=== PATIENT | male | born 1935 | race Caucasian/White ===

== ENCOUNTER 2017-09-24 14:04 | Emergency (ER) | payer OTHER ==
[2017-09-24 14:30] LABS: BASO % 0.3 % (0.0-1.0); EOS # 0.2 10*3/uL (0.0-0.4); EOS % 1.7 % (1.0-4.0); HEMATOCRIT 30.5 % (42.0-52.0); HEMOGLOBIN 9.3 g/dl (14.0-18.0); LYMPH # 1.2 10*3/uL (1.3-4.4); LYMPH % 14.3 % (27.0-41.0); MEAN CORPUSCULAR HGB CONC 30.5 g/dl (33.0-37.0); MEAN PLATELET VOLUME 9.9 fl (9.6-12.3); MONO # 0.6 10*3/uL (0.1-1.0); MONO % 7.3 % (3.0-9.0); NEUT # 6.6 10*3/uL (2.3-7.9); NEUT % 76.2 % (47.0-73.0); PLATELET COUNT AUTOMATED 308 10*3/uL (130-400); RED BLOOD COUNT 3.72 10*6/uL (4.50-5.90); RED CELL DISTRI WIDTH 16.3 % (0-14.5); WHITE BLOOD COUNT 8.6 10*3/uL (4.8-10.8)
[2017-09-24 14:45] LABS: ALBUMIN 3.9 gm/dl (3.1-4.5); ALKALINE PHOSPHATASE 48 U/L (45-117); BUN 28 mg/dl (7-24); CHLORIDE 103 mmol/L (98-107); CREATININE 1.58 mg/dL (0.70-1.30); LIPASE 111 U/L (73-393); POTASSIUM 4.5 mmol/L (3.5-5.1); SGOT/AST 15 IU/L (3-35); SGPT/ALT 20 U/L (12-78); SODIUM 137 mmol/L (136-145); TOTAL PROTEIN 7.2 gm/dL (6.4-8.2)
[2017-09-24 14:47] LABS: TROPONIN I < 0.015 ng/ml (<0.045)
== END 2017-09-24 16:41 | disposition left against medical advice (07) ==
LOC: ED 14:04
PROVIDERS: Physician Assistant
DX: R55 Syncope and collapse (principal); R42 Dizziness and giddiness; I10 Essential (primary) hypertension; E11.9 Type 2 diabetes mellitus without complications; I25.2 Old myocardial infarction; Z95.5 Presence of coronary angioplasty implant and graft

== ENCOUNTER 2020-10-24 00:22 | Inpatient (IN) | payer OTHER ==
[~2020-10-24] VITALS: Ht 177.8 cm; Wt 86.2 kg
[2020-10-24] VITALS (9 sets, daily range): BP systolic 110–150; BP diastolic 48–87
[2020-10-24 00:47] LABS: HEMATOCRIT 41.3 % (42.0-52.0); MEAN CELL VOLUME 93.9 fl (80.0-94.0); MEAN CORPUSCULAR HGB 30.5 pg (27.0-31.0); MEAN CORPUSCULAR HGB CONC 32.4 g/dl (33.0-37.0); MEAN PLATELET VOLUME 9.9 fl (9.6-12.3); PLATELET COUNT AUTOMATED 218 10*3/uL (130-400); RED CELL DISTRI WIDTH 13.1 % (0-14.5); WHITE BLOOD COUNT 5.8 10*3/uL (4.8-10.8)
--- NOTE | 2020-10-24 01:01 | NUR ---
PT DAUGHTER UPDATED ON CURRENT PLAN OF CARE.DAUGHTER REPORTS PT WAS AROUND HIS GRANDDAUGHTER AT [place] WHO HAD COVID.
[2020-10-24 01:04] LABS: ALBUMIN 3.6 gm/dl (3.1-4.5); CREATININE 1.42 mg/dL (0.70-1.30); POTASSIUM 3.9 mmol/L (3.5-5.1); TOTAL PROTEIN 6.6 gm/dL (6.4-8.2)
[2020-10-24 01:08] LABS: PLATELET SUFFICIENCY NORMAL (NORMAL); TOTAL CELLS COUNTED 100 #CELLS
--- NOTE | 2020-10-24 01:31 | NUR ---
PT BECAME DISORIENTED.PT STANDING AT THE END OF THE BED WITH IV STRETCHED ACROOS ROOM.PT IV BECAME DISLOGED.NEW IV ESTABLISHED IN LAC.IV FLUIDS CONTINUE TO INFUSE.SIDERAILS UP X2.CALL DENG IS WITHIN REACH.PT REORIENTED TO HIS SURROUNDINGS. MADE AWARE.PT TO BE MOVED CLOSER TO NURSE STATION WHEN BED AVAILABLE.UR[place] CATH PLACED FOR ATTEMPT TO OBTAIN URINE SPECIMEN.
--- NOTE | 2020-10-24 02:19 | NUR ---
PT DAUGHTER UPDATED ON CURRENT PLAN OF CARE.
--- NOTE | 2020-10-24 02:48 | NUR ---
SUJATHA CATHETER REMOVED.PT PROVIDED URINE SPECIMEN WITH USE OF BEDSIDE URINAL.SPECIMEN LABELED AND SENT TO LAB.INFUSION OF ANTIBIOTIC COMPLETED.NS CONTINUES TO INFUSE.
[2020-10-24 02:54] LABS: BILIRUBIN Negative (Negative); BLOOD Negative (Negative); CLARITY Clear (Clear); COLOR Yellow (Yellow); GLUCOSE Trace (Negative); KETONE Negative (Negative); LEUKO ESTERASE Negative (Negative); NITRITE Negative (Negative); PH 5.5 (4.5-8.0); SPECIFIC GRAVITY 1.015 (1.001-1.030)
[2020-10-24] MEDS ORDERED: AMLODIPINE BESYL5 MG PO (03:11)
[2020-10-24] MEDS ORDERED: GLUCOPHAGE500 M1 PO (03:11)
[2020-10-24] MEDS ORDERED: KLOR-CON 1010 ME1 PO (03:11)
[2020-10-24] MEDS ORDERED: SIMVASTATIN40 MG PO (03:12)
[2020-10-24] MEDS ORDERED: ASPIRIN ADULT L81 M1 PO (03:12)
[2020-10-24] MEDS ORDERED: MULTIVITAMINS1 EAC5 PO (03:12)
[2020-10-24] MEDS ORDERED: TAMSULOSIN HCL0.4 MG PO (03:13)
[2020-10-24] MEDS ORDERED: QUINAPRIL40 MG PO (03:13)
[2020-10-24] MEDS ORDERED: MELATONIN10 M4 PO (03:13)
[2020-10-24 03:14] LABS: RBC 0-2 rbc/hpf (0-2); WBC 0-2 wbc/hpf (0-5)
--- NOTE | 2020-10-24 03:14 | NUR ---
PT MEDICATIONS UPDATED PER HOME MEDICATION LIST PT PROVIDED.
--- NOTE | 2020-10-24 04:06 | NUR ---
1ST LITER NS COMPLETED.PT PROVIDED URINAL.APPROX 450 CC URINE OUTPUT.PT PROVIDED BEDSIDE TOILET FOR BM.CALL DENG IS WITHIN REACH.PT STATES HE DOES FEEL ALOT BETTER.
--- NOTE | 2020-10-24 04:07 | NUR ---
PT HAS SMALL SCAB ON RT LOWER LEG.NO PHOTO TAKEN.PT DOES STATE HE HAS SOME RANDOM BRUISING AND STATES HE BRUISES EASILY.PT DENIES ANY WOUNDS AT THIS TIME.PT A&OX3.
--- NOTE | 2020-10-24 04:17 | NUR ---
PT PROVIDED DRINK OF WATER.SECOND LITER NS INFUSING.CALL DENG IS WITHIN REACH.
[2020-10-24 05:30] LABS: ALBUMIN 3.2 gm/dl (3.1-4.5); CREATININE 1.45 mg/dL (0.70-1.30); FREE T4 1.06 ng/dl (0.76-1.46); POTASSIUM 3.8 mmol/L (3.5-5.1)
[2020-10-24 05:36] LABS: THYROID STIM HORMONE (HS) 1.23 uIU/ml (0.358-4.75)
[2020-10-24 06:15] LABS: HEMATOCRIT 38.3 % (42.0-52.0); MEAN CELL VOLUME 96.5 fl (80.0-94.0); MEAN CORPUSCULAR HGB 31.2 pg (27.0-31.0); MEAN CORPUSCULAR HGB CONC 32.4 g/dl (33.0-37.0); MEAN PLATELET VOLUME 10.5 fl (9.6-12.3); PLATELET COUNT AUTOMATED 189 10*3/uL (130-400); RED BLOOD COUNT 3.97 10*6/uL (4.50-5.90); RED CELL DISTRI WIDTH 13.2 % (0-14.5)
[2020-10-24 06:26] LABS: ACT PARTIAL THROMBO TIME 27.2 SECONDS (20.0-32.1)
[2020-10-24 06:47] LABS: BASOPHILS 1 % (0-1); TOTAL CELLS COUNTED 100 #CELLS
[2020-10-24 06:48] LABS: PLATELET SUFFICIENCY NORMAL (NORMAL)
[2020-10-24 08:21] LABS: FERRITIN 29.7 ng/mL (22.0-322.0); VITAMIN D, 25-HYDROXY 41.9 ng/mL (30-100)
--- NOTE | 2020-10-24 10:25 | NUR ---
A 85, admitted to , under the services of RAFA Yeh DO with a diagnosis of SIRS, NAUSEA. Chief complaint is NAUSEA/VOMITING. Patient arrived via bed from ER. Monitor applied. Initial assessment completed. Vital signs taken and recorded. RAFA YEH DO notified of admission to the unit. Orders received. See assessment for past medical history, medications and allergies. Patient and/or family oriented to unit. [facility]. Clothing/patient valuable form completed. ROSA ELENA NAPIER
--- NOTE | 2020-10-24 12:50 | NUR ---
NOTIFIED OF + BLOOD CULTURE RESULTS.
--- NOTE | 2020-10-24 16:00 | NUR ---
DISCUSSED OVER THE PHONE PT'S BLOOD CULTURE FINDINGS WITH DAUGHTER JIL AND GRANDDAUGHTER LIAN. GRANDDAUGHTER STATES THAT SHE RECENTLY HAD COVID-19 AND WAS AROUND PATIENT. TOLD FAMILY MEMBER THAT COVID SWAB IS PENDING STILL BUT WE ARE ISOLATING IN THE MEANTIME.
--- NOTE | 2020-10-24 17:00 | NUR ---
NOTIFIED OF PATIENT STATING THAT HIS EYESIGHT IS "DIM" IN THE LEFT EYE. PUPILS EQUAL & REACTIVE. PATIENT ABLE TO MOVE EYE AND DENIES PAIN TO IT. DENIES ANY NUMBNESS/TINGLING. NOTIFIED OF COMPLAINTS. WILL MONITOR FOR ANY WORSENING OF SYMPTOMS.
--- NOTE | 2020-10-24 21:00 | NUR ---
RESTING IN BED. DENIES ANY NEEDS. ASSESSMENT COMPLETE. CALL LIGHT WITHIN REACH. RESPS WNL. WILL MONITOR.
[2020-10-25] VITALS: BP 124/60
--- NOTE | 2020-10-25 01:54 | NUR ---
24 HR chart check completed.
[2020-10-25 05:44] LABS: CREATININE 1.53 mg/dL (0.70-1.30)
[2020-10-25 06:06] LABS: BASO % 0.3 % (0.0-1.0); EOS # 0.2 10*3/uL (0.0-0.4); EOS % 1.4 % (1.0-4.0); HEMATOCRIT 38.8 % (42.0-52.0); LYMPH # 0.7 10*3/uL (1.3-4.4); LYMPH % 6.6 % (27.0-41.0); MEAN CELL VOLUME 95.8 fl (80.0-94.0); MEAN CORPUSCULAR HGB 30.4 pg (27.0-31.0); MEAN CORPUSCULAR HGB CONC 31.7 g/dl (33.0-37.0); MEAN PLATELET VOLUME 10.4 fl (9.6-12.3); MONO # 0.6 10*3/uL (0.1-1.0); MONO % 5.3 % (3.0-9.0); NEUT # 9.5 10*3/uL (2.3-7.9); NEUT % 86.2 % (47.0-73.0); PLATELET COUNT AUTOMATED 188 10*3/uL (130-400); RED BLOOD COUNT 4.05 10*6/uL (4.50-5.90); RED CELL DISTRI WIDTH 13.7 % (0-14.5); WHITE BLOOD COUNT 11.1 10*3/uL (4.8-10.8)
[2020-10-25 08:00] VITALS: BP 140/85
--- NOTE | 2020-10-25 09:26 | NUR ---
Choir Leader in to talk to patient. Patient states lives at HOME with ALONE. There are 6 steps in the home. Physician: DOMENICA GÓMEZ [facility]acy: [facility] Home health services: NONE Patient's level of ADLs: INDEPENDENT Patient has working utilities: YES DME: NONE Follow-up physician's appointment after d/c: WILL BE MADE BY RN HOSPITALIST COORDINATOR AT DISCHARGE. Does patient want to access PORTAL?: NO Discharge plan : FINANCIAL MANAGER SPOKE WITH PATIENT VIA PHONE CALL. PATIENT STATES HE RESIDES AT HOME ALONE. PATIENT STATES HE IS INDEPENDENT WITH ADLS/IADLS. PATIENT REPORTS HIS SON LIVES ACROSS HIS [address]IVE WAY. PATIENT REPORTS THAT HE HAS A VERY GOOD SUPPORT SYSTEM. FINANCIAL MANAGER SPOKE WITH PATIENT ABOUT HOME HEALTH, PATIENT STATES HE DOES NOT FEEL HE WILL NEED IT AT THIS TIME. PATIENT PLANS TO RETURN HOME AT DISCHARGE. PATIENT STATES HIS SON OR DAUGHTER WILL TRANSPORT UPON DISCHARGE. CASE MANAGEMENT TO FOLLOW. WANDA MO
[2020-10-25 12:00] VITALS: BP 136/70
--- NOTE | 2020-10-25 12:27 | NUR ---
CONSULT CALLED INTO DR. BOND. AWAITING RETURN CALL.
--- NOTE | 2020-10-25 13:09 | NUR ---
JANUARY WITH INFECTIOUS DISEASE RETURNED THE CALL, IS AWARE OF CONSULT AND WILL BE IN TO SEE PT.
--- NOTE | 2020-10-25 14:50 | NUR ---
CALLED BERNARD EDWARD PT TO TAKE OFF MONITOR TO SHOWER. WILL REAPPLY.
--- NOTE | 2020-10-25 15:00 | NUR ---
PT MONITOR INTACT. PT UP IN CHAIR, CALL LIGHT WITHIN REACH.
[2020-10-25 16:00] VITALS: BP 161/67
--- NOTE | 2020-10-25 17:40 | NUR ---
IV to LAC DISCONTINUTED, CATHETER INTACT. IV started right wrist with # angiocath after 1 attempts. The IV site was prepped with Chloraprep. Heparin lock attached. Sterile dressing applied. Patient tolerated precedure well. Procedure performed according to [facility] policy & procedure. ALEXANDREA DE LA CRUZ
[2020-10-25 20:00] VITALS: BP 120/104
--- NOTE | 2020-10-25 21:34 | NUR ---
PT SITTING UP IN RECLINER CHAIR. SKIN W/D. BSG-142, SEE EMAR. NO C/O AT THIS TIME. CALL LIGHT IN REACH. NO SOB NOTED. SEE SHIFT ASSESSMENT.
--- NOTE | 2020-10-25 23:00 | NUR ---
BLADDER SCAN PREFORMED WITH 178CC URINE AFTER VOIDING POST VOID RESIDUAL WAS 63CC. KATHERIN KENDALL MADE AWARE OF POST VOID.
[2020-10-26] VITALS: BP 157/67
--- NOTE | 2020-10-26 00:50 | NUR ---
RESTING IN BED ON RIGHT SIDE, AWAKENS EASILY. TOLERATING IV ANTIBIOTIC WITH NO PROBLEM. NO C/O AT THIS TIME. CALL LIGHT IN REACH.
--- NOTE | 2020-10-26 05:30 | NUR ---
TOLERATED ROUTINE IV MED WITH NO PROBLEM. BSG-93, SEE EMAR. NO C/O AT THIS TIME. CALL LIGHT IN REACH.
[2020-10-26 06:09] LABS: BASO % 0.5 % (0.0-1.0); EOS # 0.3 10*3/uL (0.0-0.4); EOS % 4.5 % (1.0-4.0); LYMPH # 0.8 10*3/uL (1.3-4.4); LYMPH % 13.3 % (27.0-41.0); MEAN CELL VOLUME 94.1 fl (80.0-94.0); MEAN CORPUSCULAR HGB 30.4 pg (27.0-31.0); MEAN CORPUSCULAR HGB CONC 32.4 g/dl (33.0-37.0); MEAN PLATELET VOLUME 9.8 fl (9.6-12.3); MONO # 0.6 10*3/uL (0.1-1.0); MONO % 9.9 % (3.0-9.0); NEUT # 4.1 10*3/uL (2.3-7.9); NEUT % 71.6 % (47.0-73.0); PLATELET COUNT AUTOMATED 175 10*3/uL (130-400); RED BLOOD COUNT 4.04 10*6/uL (4.50-5.90); RED CELL DISTRI WIDTH 13.4 % (0-14.5); WHITE BLOOD COUNT 5.8 10*3/uL (4.8-10.8)
[2020-10-26 06:34] LABS: ALBUMIN 3.1 gm/dl (3.1-4.5); CREATININE 1.54 mg/dL (0.70-1.30); TOTAL PROTEIN 6.6 gm/dL (6.4-8.2)
--- NOTE | 2020-10-26 07:25 | NUR ---
CALLED DR. CAMACHO REGARDING CRITICAL BLOOD CULTURES.
--- NOTE | 2020-10-26 07:30 | NUR ---
BLADDER SCANNED PATIENT AT THIS TIME PER ORDER. GREATEST AMOUNT FOUND WAS 15ML.
--- NOTE | 2020-10-26 07:30 | NUR ---
PATIENT RESTING IN BED. ASSESSMENT COMPLETE. RESPS WNL. ON ROOM AIR. DENIES ANY NEEDS. CALL LIGHT WITHIN REACH.
[2020-10-26 08:00] VITALS: BP 132/55
[2020-10-26 12:00] VITALS: BP 161/79
--- NOTE | 2020-10-26 13:59 | NUR ---
Shift chart check completed.
--- NOTE | 2020-10-26 15:30 | NUR ---
PATIENT BLADDER SCANNED PER ORDER GREATEST AMOUNT WAS 54.
[2020-10-26 16:00] VITALS: BP 159/81
[2020-10-26 20:00] VITALS: BP 135/53
--- NOTE | 2020-10-26 20:05 | NUR ---
PT SITTING UP IN RECLINER CHAIR. NO C/O AT THIS TIME. TOLERATED ROUTINE MED WITH NO PROBLEM. CALL LIGHT IN REACH. SEE SHIFT ASSESSMENT.
[2020-10-27] VITALS: BP 150/79
--- NOTE | 2020-10-27 | NUR ---
PT SLEEPING IN BED. RESP-EASY AND REGULAR. CALL LIGHT IN REACH.
--- NOTE | 2020-10-27 04:00 | NUR ---
SLEEPING IN BED. RESP-EASY AND REGULAR. CALL LIGHT IN REACH.
--- NOTE | 2020-10-27 05:42 | NUR ---
BSG-117, SEE EMAR. NO C/O AT THIS TIME. CALL LIGHT IN REACH.
[2020-10-27 06:30] LABS: BASO % 0.4 % (0.0-1.0); EOS # 0.3 10*3/uL (0.0-0.4); EOS % 5.6 % (1.0-4.0); HEMATOCRIT 40.5 % (42.0-52.0); LYMPH # 0.8 10*3/uL (1.3-4.4); LYMPH % 15.3 % (27.0-41.0); MEAN CELL VOLUME 93.8 fl (80.0-94.0); MEAN CORPUSCULAR HGB 30.8 pg (27.0-31.0); MEAN CORPUSCULAR HGB CONC 32.8 g/dl (33.0-37.0); MEAN PLATELET VOLUME 10.4 fl (9.6-12.3); MONO # 0.5 10*3/uL (0.1-1.0); MONO % 10.3 % (3.0-9.0); NEUT # 3.5 10*3/uL (2.3-7.9); NEUT % 68.2 % (47.0-73.0); PLATELET COUNT AUTOMATED 201 10*3/uL (130-400); RED BLOOD COUNT 4.32 10*6/uL (4.50-5.90); RED CELL DISTRI WIDTH 13.2 % (0-14.5); WHITE BLOOD COUNT 5.2 10*3/uL (4.8-10.8)
[2020-10-27 06:50] LABS: ALBUMIN 3.3 gm/dl (3.1-4.5); BUN 24 mg/dl (7-24); CHLORIDE 106 mmol/L (98-107); CREATININE 1.36 mg/dL (0.70-1.30); LDH 89 U/L (87-241); POTASSIUM 3.7 mmol/L (3.5-5.1); SODIUM 138 mmol/L (136-145); TOTAL PROTEIN 7.2 gm/dL (6.4-8.2)
[2020-10-27 06:56] LABS: ALKALINE PHOSPHATASE 54 U/L (45-117); SGOT/AST 19 IU/L (3-35); SGPT/ALT 30 U/L (12-78)
[2020-10-27 08:00] VITALS: BP 151/69
--- NOTE | 2020-10-27 08:30 | NUR ---
Patient resting quietly with no c/o discomfort. Respirations easy and regular. Isolation precautions maintained. Vital signs stable. No overt distress. TOM MEJÍA R
[2020-10-27 12:00] VITALS: BP 156/76
[2020-10-27] MEDS ORDERED: Lidoderm 5% Patch T (15:55)
[2020-10-27] MEDS ORDERED: LIDODERM1 EACH T (15:56)
[2020-10-27 16:00] VITALS: BP 140/68
--- NOTE | 2020-10-27 16:20 | NUR ---
OT NOTE Occupational therapy order received and screen completed. Patient was seated in the chair upon arrival. Patient demonstrated independent ADLs, transfers, and functional mobility within the room. Patient's primary RN reported that patient is being discharged back home today. Patient had no concerns in regards to returning home. Patient is OT screen only with no further OT indicated. Thank you for the referral. Cecy Zaragoza, OTR/L
--- NOTE | 2020-10-27 16:20 | NUR ---
PHYSICAL THERAPY PT evaluation attempted. Spoke with patient in room, screen completed. Patient demonstrated independence in room with gait and transfers. Patient reports no PT needs at this time. Discharge PT orders. Thank you. Charlette Garcia,PT,DPT
[2020-10-27] MEDS ORDERED: OMNICEF300 MG PO (16:35)
--- NOTE | 2020-10-27 18:14 | NUR ---
Discharge instructions reviewed with patient/family. Patient receptive and verbalizes understanding. Follow-up care arranged. Written instructions given to patient/family. TOM MEJÍA
== END 2020-10-27 18:14 | disposition home or self-care (01) | DRG 872 ==
LOC: ED 00:22 → EDHOLD 03:48 → 4E 03:48
PROVIDERS: Emergency Medicine; Hospitalist; Internal Medicine; Nurse Practitioner; ADMIT Internal Medicine; ATTEND Internal Medicine
DX: A41.51 Sepsis due to Escherichia coli [E. coli] (principal); E87.2 Acidosis; E44.0 Moderate protein-calorie malnutrition; R65.20 Severe sepsis without septic shock; E86.0 Dehydration; K52.9 Noninfective gastroenteritis and colitis, unspecified; E11.42 Type 2 diabetes mellitus with diabetic polyneuropathy; E87.8 Other disorders of electrolyte and fluid balance, not elsewhere classified; K57.90 Diverticulosis of intestine, part unspecified, without perforation or abscess without bleeding; I10 Essential (primary) hypertension; E78.5 Hyperlipidemia, unspecified; E11.65 Type 2 diabetes mellitus with hyperglycemia; E83.42 Hypomagnesemia; Z20.822 Contact with and (suspected) exposure to COVID-19; N40.0 Benign prostatic hyperplasia without lower urinary tract symptoms; I25.10 Atherosclerotic heart disease of native coronary artery without angina pectoris; G62.9 Polyneuropathy, unspecified; D53.9 Nutritional anemia, unspecified; E83.39 Other disorders of phosphorus metabolism; Z79.82 Long term (current) use of aspirin; Z79.84 Long term (current) use of oral hypoglycemic drugs; Z79.899 Other long term (current) drug therapy